=== PATIENT | female | born 1975 | race Caucasian/White ===

== ENCOUNTER 2016-10-20 17:35 | Emergency (ER) | payer BC ==
[2016-10-20 17:47] VITALS: BP 169/111
--- NOTE | 2016-10-20 18:56 | UC ---
Palpitation/Dysrhythmia HP - HPI Summary HPI Summary: ONSET OF PALPITATIONS WHILE DRIVING BACK HOME FROM [place] [employer] 3 DAYS AGO (10/17). EPISODES LAST A FEW SECONDS THEN RESOLVE SPONTANEOUSLY. NO APPARENT TRIGGER. TODAY FELT HER "CHEST FLUTTER" AND FELT IF SHE WERE GOING TO PASS OUT. NO N/V/D. NO CHEST PAIN. DOES HAVE SOME MILD SOB NOT NECESSARILY ASSOCIATED WITH THE PALPITATIONS. DENIES ANY RECENT STRESS OR EXCESSIVE CAFFEINE INTAKE. REPORTS HER TSH WAS CHECKED ABOUT 6 MONTHS AGO AND WAS OKAY. - History of Current Complaint Chief Complaint: UCCardiac Stated Complaint: PALPITATIONS,FLUSHED Time Seen by Provider: 10/20/16 18:46 Hx Obtained From: Patient Hx Last Menstrual Period: 10/15/16 Onset/Duration: Sudden Onset, Lasting Days, Still Present Timing: Intermittent Episodes Lasting: - SECONDS Severity Initially: Moderate Severity Currently: None Pain Intensity: 0 Pain Scale Used: 0-10 Numeric Character: Fast, Pounding, Fluttering Aggravating Factor(s): Nothing Alleviating Factor(s): Nothing Associated Signs & Symptoms: Positive: Syncope - PRE-SYNCOPE, Shortness of Breath. Negative: Chest Pain, Diaphoresis - Allergy/Home Medications Allergies/Adverse Reactions: Allergies Allergy/AdvReac Type Severity Reaction Status Date / Time No Known Allergies Allergy Verified 10/20/16 17:43 PMH/Surg Hx/FS Hx/Imm Hx Endocrine History Of: Reports: Thyroid Disease, Hypothyroidism Denies: Diabetes Cardiovascular History Of: Reports: Hypertension Denies: Cardiac Disorders Respiratory History Of: Denies: COPD, Asthma GI/ History Of: Denies: Ulcer Cancer History Of: Denies: Breast Cancer - Surgical History Surgical History: Yes Surgery Procedure, Year, and Place: UTERINE ABLATION, TONSILLECTOMY - Family History Known Family History: Positive: Hypertension, Diabetes Family History: CVA - Social History Alcohol Use: Occasionally Substance Use Type: None Smoking Status (MU): Former Smoker Review of Systems Constitutional: Negative Respiratory: Shortness Of Breath Cardiovascular: Palpitations Gastrointestinal: Negative Musculoskeletal: Negative Psychological: Anxious All Other Systems Reviewed And Are Negative: Yes Physical Exam Triage Information Reviewed: Yes Appearance: Well-Appearing, No Pain Distress, Well-Nourished, Other: - ANXIOUS Vital Signs: Initial Vital Signs Temp 98.6 F 10/20/16 17:44 Pulse 95 10/20/16 17:44 Resp 16 10/20/16 17:44 BP 169/111 10/20/16 17:44 Pulse Ox 95 10/20/16 17:44 Vital Signs Reviewed: Yes Eyes: Positive: Conjunctiva Clear ENT: Positive: Hearing grossly normal Neck: Positive: Supple, Nontender, No Lymphadenopathy Respiratory Exam: Normal Cardiovascular: Positive: Tachycardia Abdomen Description: Positive: Soft Musculoskeletal: Positive: No Edema, Other: - NO CALF TENDERNESS, NEG HOMANS Neurological: Positive: Alert Psychological: Positive: Age Appropriate Behavior Skin: Negative: rashes Diagnostics - EKG Cardiac Rate: NL - 82BPM Cardiac Rhythm: Sinus: Normal Ectopy: None ST Segment: Normal Palpitations Course/Dx - Differential Dx/Diagnosis Differential Diagnosis/HQI/PQRI: Hypokalemia, Medication Induced - LEVOTHYROXINE ?, Panic Disorder, Paroxymal SVT Provider Diagnoses: PALPITATIONS - Physician Notifications Discussed Patient Care With: DR. MAHIN ARIAS Time Discussed With Above Provider: 19:15 - TO [facility] [place] ER BY PRIVATE CAR Discharge - Discharge Plan Condition: Stable Disposition: AGAINST MEDICAL ADVICE Referrals: Samir Gomez MD [Primary Care Provider] -
== END 2016-10-20 19:05 | disposition left against medical advice (07) ==
LOC: UCEAST 17:35
DX: R00.2 Palpitations (principal); E03.9 Hypothyroidism, unspecified; I10 Essential (primary) hypertension; Z87.891 Personal history of nicotine dependence
CPT/HCPCS: 93005; 99212; G0463

== ENCOUNTER 2016-10-20 19:42 | Emergency (ER) | payer BC ==
[2016-10-20] MEDS ORDERED: NS 0.9% 1000 ML* 1,000 ML IV ONE (20:26)
--- NOTE | 2016-10-20 20:44 | RAD ---
INDICATION: Palpitations. COMPARISON: There are no prior studies available for comparison. TECHNIQUE: A portable view of the chest was obtained. FINDINGS: Cardiac and mediastinal contours appear to be within normal limits. The lungs are clear. No pleural effusion is seen. IMPRESSION: NO EVIDENCE FOR ACUTE DISEASE.
[2016-10-20] MEDS ORDERED: Acetaminophen TAB* 325 MG PO ONE (21:14)
[2016-10-20] MEDS ORDERED: Ondansetron INJ* 2 MG/ML VIAL IV ONE (21:14)
[2016-10-20 21:21] LABS: Hematocrit 41 % (35-47); Hemoglobin 13.9 g/dl (12.0-16.0); Mean Corpuscular HGB Conc 34 g/dl (31-36); Mean Corpuscular Hemoglobin 28 pg (27-31); Mean Corpuscular Volume 84 fL (80-97); Mean Platelet Volume 10 um3 (7.4-10.4); Red Blood Count 4.92 10^6/ul (4.0-5.4); Red Cell Distribution Width 14 % (10.5-15); White Blood Count 8.4 10^3/ul (3.5-10.8)
[2016-10-20 21:37] LABS: ALT 15 U/L (7-52); AST 16 U/L (13-39); Albumin 4.1 g/dL (3.2-5.2); Alkaline Phosphatase 64 U/L (34-104); Anion Gap 9 mmol/L (2-11); BUN/Creatinine Ratio 15.7 (8-20); Blood Urea Nitrogen 13 mg/dL (6-24); C Reactive Protein 9.29 mg/L (< 5.00); CO2 Carbon Dioxide 25 mmol/L (22-32); Calcium 9.4 mg/dL (8.6-10.3); Chloride 102 mmol/L (101-111); Creatine Kinase 81 U/L (10-223); EGFR African American 97.4 (>60); EGFR Non-African American 75.8 (>60); Glucose 98 mg/dL (70-100); Lipase 29 U/L (11.0-82.0); Potassium 3.6 mmol/L (3.5-5.0); Sodium 136 mmol/L (133-145); Total Protein 7.1 g/dL (6.4-8.9)
[2016-10-20 22:13] LABS: TSH (Thyroid Stimulating Horm) 3.51 mcIU/mL (0.34-5.60)
--- NOTE | 2016-10-20 22:50 | ED ---
Jigar Rosales Alok, scribed for Silverio Taylor MD on 10/20/16 at 204 . Palpitations / Dysrhythmia - HPI Summary HPI Summary: 41 y/o female presents to the ED for palpitations on and off for past 4 days as well as a fluttering sensation from her chest up to her neck today. Pt states that she has also been feeling bouts of lightheadedness for the past 4 days as well although not necessarily at the same time as her palpations, and was first noticed while lifting a cabinet 4 days ago. This lightheadedness is worsened by position when siting up or standing. Pt also notes a dull KENDALL for the past 4 days accompanied by hot flashes of the face. The pt states her palpitations last seconds, the last of which at 1700 today. Today she approximates she has had 10 episodes of palpitations. Pt also notes mild numbness/tingling in her left arm currently but states she has gotten these before due to her thyroid issues. Pt denies fever, chills, CP, V/D. Pt denies recent changes in hydration , diet, or exercise. She takes Levothyroxine for thyroid and hydrochlorothiazide for HTN. - History of Current Complaint Chief Complaint: EDSyncope Time Seen by Provider: 10/20/16 20:10 Hx Obtained From: Patient Onset/Duration: Lasting Days, Still Present Timing: Intermittent Episodes Lasting: - Seconds Character: Pounding, Fluttering Aggravating: Exertion Alleviating: Rest Associated Signs & Symptoms: Lightheadedness - Allergy/Home Medications Allergies/Adverse Reactions: Allergies Allergy/AdvReac Type Severity Reaction Status Date / Time No Known Allergies Allergy Verified 10/20/16 17:43 PMH/Surg Hx/FS Hx/Imm Hx Endocrine/Hematology History: Reports: Hx Thyroid Disease Denies: Hx Diabetes Cardiovascular History: Reports: Hx Hypertension Respiratory History: Denies: Hx Asthma, Hx Chronic Obstructive Pulmonary Disease (COPD) GI History: Denies: Hx Ulcer - Surgical History Surgery Procedure, Year, and Place: UTERINE ABLATION, TONSILLECTOMY Infectious Disease History: Denies: Hx Hepatitis, Hx Human Immunodeficiency Virus (HIV), Traveled Outside the [place] in Last 30 Days - Family History Known Family History: Positive: Hypertension, Diabetes Family History: CVA - Social History Occupation: Employed Full-time Lives: With Family Alcohol Use: Occasionally Substance Use Type: Reports: None Smoking Status (MU): Former Smoker Review of Systems Negative: Fever, Chills Positive: Palpitations. Negative: Chest Pain Negative: Vomiting, Diarrhea Neurological: Other - Lightheadedness Positive: Headache All Other Systems Reviewed And Are Negative: Yes Physical Exam Triage Information Reviewed: Yes Vital Signs On Initial Exam: Initial Vitals Temp Pulse Resp BP Pulse Ox 97.9 F 85 18 164/105 99 10/20/16 19:58 10/20/16 19:58 10/20/16 19:58 10/20/16 19:58 10/20/16 19:58 Vital Signs Reviewed: Yes Appearance: Positive: Well-Appearing, No Pain Distress Skin: Positive: Warm, Skin Color Reflects Adequate Perfusion, Dry Head/Face: Positive: Normal Head/Face Inspection Eyes: Positive: EOMI, DON ENT: Positive: Normal ENT inspection Neck: Positive: Supple, Nontender Respiratory/Lung Sounds: Positive: Clear to Auscultation, Breath Sounds Present Cardiovascular: Positive: RRR Abdomen Description: Positive: Nontender, Soft Bowel Sounds: Positive: Present Musculoskeletal: Positive: Normal, Strength/ROM Intact. Negative: Edema Left, Edema Right Neurological: Positive: Normal, Sensory/Motor Intact, Alert, Oriented to Person Place, Time Psychiatric: Positive: Affect/Mood Appropriate Diagnostics - Vital Signs Vital Signs Temp Pulse Resp BP Pulse Ox 10/20/16 19:58 97.9 F 85 18 164/105 99 - Laboratory Lab Results: Lab Results 10/20/16 10/20/16 10/20/16 Range/Units 21:00 21:00 21:00 WBC 8.4 (3.5-10.8) 10^3/ul RBC 4.92 (4.0-5.4) 10^6/ul Hgb 13.9 (12.0-16.0) g/dl Hct 41 (35-47) % MCV 84 (80-97) fL MCH 28 (27-31) pg MCHC 34 (31-36) g/dl RDW 14 (10.5-15) % Plt Count 195 (150-450) 10^3/ul MPV 10 (7.4-10.4) um3 Neut % (Auto) 59.0 (38-83) % Lymph % (Auto) 31.9 (25-47) % [place] % (Auto) 6.9 (1-9) % Eos % (Auto) 1.0 (0-6) % Baso % (Auto) 1.2 (0-2) % Absolute Neuts (auto) 5.0 (1.5-7.7) 10^3/ul Absolute Lymphs (auto) 2.7 (1.0-4.8) 10^3/ul Absolute Monos (auto) 0.6 (0-0.8) 10^3/ul Absolute Eos (auto) 0.1 (0-0.6) 10^3/ul Absolute Basos (auto) 0.1 (0-0.2) 10^3/ul Absolute Nucleated RBC 0.01 10^3/ul Nucleated RBC % 0.1 INR (Anticoag Therapy) 0.86 L (0.89-1.11) APTT 32.4 (26.0-36.3) seconds D-Dimer, Quantitative < 200 (Less Than 230) ng/mL Sodium 136 (133-145) mmol/L Potassium 3.6 (3.5-5.0) mmol/L Chloride 102 (101-111) mmol/L Carbon Dioxide 25 (22-32) mmol/L Anion Gap 9 (2-11) mmol/L BUN 13 (6-24) mg/dL Creatinine 0.83 (0.51-0.95) mg/dL Est GFR ( Amer) 97.4 (>60) Est GFR (Non-Af Amer) 75.8 (>60) BUN/Creatinine Ratio 15.7 (8-20) Glucose 98 (70-100) mg/dL Lactic Acid (0.5-2.0) mmol/L Calcium 9.4 (8.6-10.3) mg/dL Magnesium 2.0 (1.9-2.7) mg/dL Total Bilirubin 0.50 (0.2-1.0) mg/dL AST 16 (13-39) U/L ALT 15 (7-52) U/L Alkaline Phosphatase 64 (34-104) U/L Total Creatine Kinase 81 (10-223) U/L CK-MB (CK-2) 1.1 (0.6-6.3) ng/mL Troponin I 0.00 (<0.04) ng/mL C-Reactive Protein 9.29 H (< 5.00) mg/L Total Protein 7.1 (6.4-8.9) g/dL Albumin 4.1 (3.2-5.2) g/dL Globulin 3.0 (2-4) g/dL Albumin/Globulin Ratio 1.4 (1-3) Lipase 29 (11.0-82.0) U/L TSH 3.51 (0.34-5.60) mcIU/mL Beta HCG, Quant < 0.60 mIU/mL 10/20/16 Range/Units 21:00 WBC (3.5-10.8) 10^3/ul RBC (4.0-5.4) 10^6/ul Hgb (12.0-16.0) g/dl Hct (35-47) % MCV (80-97) fL MCH (27-31) pg MCHC (31-36) g/dl RDW (10.5-15) % Plt Count (150-450) 10^3/ul MPV (7.4-10.4) um3 Neut % (Auto) (38-83) % Lymph % (Auto) (25-47) % [place] % (Auto) (1-9) % Eos % (Auto) (0-6) % Baso % (Auto) (0-2) % Absolute Neuts (auto) (1.5-7.7) 10^3/ul Absolute Lymphs (auto) (1.0-4.8) 10^3/ul Absolute Monos (auto) (0-0.8) 10^3/ul Absolute Eos (auto) (0-0.6) 10^3/ul Absolute Basos (auto) (0-0.2) 10^3/ul Absolute Nucleated RBC 10^3/ul Nucleated RBC % INR (Anticoag Therapy) (0.89-1.11) APTT (26.0-36.3) seconds D-Dimer, Quantitative (Less Than 230) ng/mL Sodium (133-145) mmol/L Potassium (3.5-5.0) mmol/L Chloride (101-111) mmol/L Carbon Dioxide (22-32) mmol/L Anion Gap (2-11) mmol/L BUN (6-24) mg/dL Creatinine (0.51-0.95) mg/dL Est GFR ( Amer) (>60) Est GFR (Non-Af Amer) (>60) BUN/Creatinine Ratio (8-20) Glucose (70-100) mg/dL Lactic Acid 1.2 (0.5-2.0) mmol/L Calcium (8.6-10.3) mg/dL Magnesium (1.9-2.7) mg/dL Total Bilirubin (0.2-1.0) mg/dL AST (13-39) U/L ALT (7-52) U/L Alkaline Phosphatase (34-104) U/L Total Creatine Kinase (10-223) U/L CK-MB (CK-2) (0.6-6.3) ng/mL Troponin I (<0.04) ng/mL C-Reactive Protein (< 5.00) mg/L Total Protein (6.4-8.9) g/dL Albumin (3.2-5.2) g/dL Globulin (2-4) g/dL Albumin/Globulin Ratio (1-3) Lipase (11.0-82.0) U/L TSH (0.34-5.60) mcIU/mL Beta HCG, Quant mIU/mL Result Diagrams: 10/20/16 21:00 10/20/16 21:00 Lab Statement: Any lab studies that have been ordered have been reviewed, and results considered in the medical decision making process. - Radiology CXR Xray Interpretation: Positive (See Comments) - IMPRESSION: NO EVIDENCE OF ACUTE DISEASE. Radiology Interpretation Completed By: Radiologist Course/Dx - Course Course Of Treatment: NO CRITICAL CARE TIME Assessment/Plan: WELL IN ED. NO PVCS/PACS/ARRHTYMIAS SEEN ON DIRECTOR ON AIR. DISCUSSED RESULTS WITH PATIENT/. DISCHARGE HOME STABLE. - Diagnoses Provider Diagnoses: Palpitations, Hypertension Discharge - Discharge Plan Condition: Stable Disposition: HOME Patient Education Materials: Palpitations (ED), Hypertension (ED) Referrals: Samir Gomez MD [Primary Care Provider] - Additional Instructions: FOLLOW UP WITH YOUR DOCTOR. DISCUSS HAVING A CARDIAC EVENT MONITOR WITH YOUR DOCTOR. RETURN TO THE EMERGENCY DEPARTMENT FOR ANY WORSENING OF YOUR CONDITION; CHEST PAIN, SHORTNESS OF BREATH, YOU FEEL ILL, YOU FEEL LIKE PASSING OUT OR QUESTIONS OR CONCERNS. The documentation as recorded by the scribeJigar Alok accurately reflects the service I personally performed and the decisions made by me, Silverio Taylor MD.
[2016-10-20 23:04] VITALS: BP 135/88
== END 2016-10-20 23:11 | disposition home or self-care (01) ==
LOC: ED 19:42
DX: R00.2 Palpitations (principal); I10 Essential (primary) hypertension; R42 Dizziness and giddiness; R51 Headache; Z87.891 Personal history of nicotine dependence
CPT/HCPCS: 36415; 71010; 80053; 82550; 82553; 83605; 83690; 83735; 84443; 84484; 84702; 85025; 85379; 85610; 85730; 86140; 96374; 99283; A9270-GY; J2405